=== PATIENT | female | born 1975 | race American Indian/Alaskan Native ===

== ENCOUNTER 2020-11-06 17:06 | Emergency (ER) | payer SELFPAY ==
[2020-11-06 17:32] VITALS: BP 145/91
--- NOTE | 2020-11-06 18:03 | Emergency Department Report ---
ED General Adult HPI - General Chief complaint: Skin Rash Stated complaint: ALLERGIC REACTION Time Seen by Provider: 11/06/20 17:58 Source: patient Mode of arrival: Ambulatory Limitations: No Limitations - History of Present Illness Initial comments: 45-year-old -[place] female patient presents with complaints of itchy rash to the face x4 days. She is unsure of if she had an allergic reaction to anything, but denies any new skin products or new foods. She states there is some mild burning pain to the face. She denies trying any OTC medications for symptoms. She also denies any shortness of breath, chest pain, or dysphagia - Related Data Previous Rx's Medication Instructions Recorded Last Taken Type Famotidine [Pepcid] 20 mg PO BID 10 Days #20 tablet 11/06/20 Unknown Rx Loratadine [Claritin] 10 mg PO QDAY 10 Days #10 tablet 11/06/20 Unknown Rx Prednisone [predniSONE 10 mg 10 mg PO .TAPER #1 tab.ds.pk 11/06/20 Unknown Rx (6-Day Pack, 21 Tabs)] Triamcinolone 0.1% [Kenalog 0.1% 1 applic TP TID PRN 7 Days #1 tube 11/06/20 Unknown Rx CREAM] Allergies Allergy/AdvReac Type Severity Reaction Status Date / Time Penicillins Allergy Rash Verified 11/06/20 17:30 ED Review of Systems ROS: Stated complaint: ALLERGIC REACTION Other details as noted in HPI Constitutional: denies: chills, diaphoresis, fever, malaise ENT: denies: throat pain Respiratory: denies: cough, shortness of breath Cardiovascular: denies: chest pain Gastrointestinal: denies: abdominal pain, nausea, vomiting Skin: rash, change in color, pruritus Neurological: denies: confusion Hematological/Lymphatic: denies: swollen glands ED Past Medical Hx - Past Medical History Previous Medical History?: No - Surgical History Past Surgical History?: No - Medications Home Medications: Home Medications Medication Instructions Recorded Confirmed Last Taken Type Famotidine [Pepcid] 20 mg PO BID 10 Days #20 tablet 11/06/20 Unknown Rx Loratadine [Claritin] 10 mg PO QDAY 10 Days #10 tablet 11/06/20 Unknown Rx Prednisone [predniSONE 10 mg 10 mg PO .TAPER #1 tab.ds.pk 11/06/20 Unknown Rx (6-Day Pack, 21 Tabs)] Triamcinolone 0.1% [Kenalog 0.1% 1 applic TP TID PRN 7 Days #1 tube 11/06/20 Unknown Rx CREAM] ED Physical Exam - General Limitations: No Limitations General appearance: alert, in no apparent distress, obese - Head Head exam: Present: atraumatic, normocephalic - Eye Eye exam: Present: normal appearance, periorbital swelling (Mild lower lid swelling noted bilaterally). Absent: scleral icterus, conjunctival injection - Respiratory Respiratory exam: Absent: respiratory distress - Cardiovascular Cardiovascular Exam: Present: regular rate - Neurological Exam Neurological exam: Present: alert, oriented X3, normal gait - Psychiatric Psychiatric exam: Present: normal affect, normal mood - Skin Skin exam: Present: warm, dry, rash (Erythemic rash with scattered diffuse small papules and pustules noted diffusely across face; rash is nontender and noncellulitic in appearance) ED Course Vital Signs 11/06/20 17:30 Temperature 97.7 F Pulse Rate 75 Respiratory 20 Rate Blood Pressure 145/91 O2 Sat by Pulse 100 Oximetry ED Medical Decision Making - Medical Decision Making 45-year-old -[place] female patient presents with complaints of itchy rash to the face x4 days. She is unsure of if she had an allergic reaction to anything, but denies any new skin products or new foods. She states there is some mild burning pain to the face. She denies trying any OTC medications for symptoms. She also denies any shortness of breath, chest pain, or dysphagia Will treat for allergic dermatitis with antihistamines and steroids. Discussed signs and symptoms that should prompt immediate return to the emergency department in detail with patient who verbalizes understanding. Her vitals are stable and she is nontoxic-appearing. Patient is to discharge home with follow- up with her primary care doctor in 3 days for Critical care attestation.: If time is entered above; I have spent that time in minutes in the direct care of this critically ill patient, excluding procedure time. ED Disposition Clinical Impression: Allergic dermatitis Disposition: DC- TO HOME OR SELFCARE Is pt being admited?: No Condition: Stable Instructions: Contact Dermatitis Prescriptions: Loratadine [Claritin] 10 mg PO QDAY 10 Days #10 tablet Triamcinolone 0.1% [Kenalog 0.1% CREAM] 1 applic TP TID PRN 7 Days #1 tube PRN Reason: Itching Famotidine [Pepcid] 20 mg PO BID 10 Days #20 tablet Prednisone [predniSONE 10 mg (6-Day Pack, 21 Tabs)] 10 mg PO .TAPER #1 tab.ds.pk Referrals: [facility] [Provider Group] - 3-5 Days
== END 2020-11-06 19:04 | disposition home or self-care (01) ==
LOC: ED 17:06
DX: L23.9 Allergic contact dermatitis, unspecified cause (principal); Z88.0 Allergy status to penicillin; Z79.899 Other long term (current) drug therapy
CPT/HCPCS: 99282